=== PATIENT | male | born 1930 | race Caucasian/White ===

== ENCOUNTER 2018-06-22 19:05 | Inpatient (IN) ==
--- NOTE | 2018-06-22 19:49 | XR ---
EXAM DATE: 06/22/2018 7:46 PM EST AGE/SEX: 87 years / Male INDICATIONS: Shortness of breath. CLINICAL DATA: This is the patient's initial encounter. Patient reports that signs and symptoms have been present for 1 day and indicates a pain score of 0/10. MEDICAL/SURGICAL HISTORY: Hypertension. Congestive heart failure. Hypercholesterolemia. None. COMPARISON: [facility], CHEST SINGLE AP, 10/31/2015. . FINDINGS: No significant new focal pleural or parenchymal opacities. The cardiomediastinal contours are stable . Osseous structures are intact. CONCLUSION: 1. No acute cardiopulmonary disease. Electronically signed by: Catracho Piedra MD Board Certified Radiologist 06/22/2018 7:48 PM ES T
--- NOTE | 2018-06-22 19:51 | ED ---
HPI General Chief Complaint: Syncope Stated Complaint: syncope Time Seen by Provider: 06/22/18 19:26 Source: family Mode of arrival: EMS Limitations: other (Patient is almost completely nonverbal. He will occasionally answer simple yes/no questions.) History of Present Illness MD complaint: Reports loss of consciousness Onset (ago): minute(s) Duration of episode: 2 -: minutes(s) Description of event: Reports stopped breathing and other (Patient was just staring straight ahead. He did not seem to stop breathing. He was sitting on the toilet at the time. The family pressed on his chest. He started breathing again. He then vomited.) Prodromal symptoms: Reports none Witnessed: yes - by bystander Context: Reports other (He was sitting on the toilet. He is incontinent and wears a diaper. His daughter was in the process of changing his diaper and shirt when the episode occurred.) Injuries sustained associated with event: Reports none Current symptoms: Reports back to baseline History: Reports other (Dementia) Treatments prior to arrival: Reports none Related Data Home Medications Medication Instructions Recorded Confirmed alprazolam 0.5 mg PO DAILY 06/22/18 06/22/18 donepezil 10 mg PO DAILY 06/22/18 06/22/18 finasteride 5 mg PO DAILY 06/22/18 06/22/18 memantine 5 mg PO DAILY 06/22/18 06/22/18 quetiapine 50 mg PO BID 06/22/18 06/22/18 Allergies Allergy/AdvReac Type Severity Reaction Status Date / Time haloperidol AdvReac Intermediate tremors, Verified 06/22/18 19:12 dysphagia Review of Systems ROS: all other systems reviewed are negative [facility] Medical History Medical History CVA (cerebral vascular accident) (Acute) Dementia (Acute) History of anxiety (Acute) History of dysphagia (Acute) Social History Social History Substance History: No History of Abuse Second Hand Smoke Exposure: No Smoking Status: Former smoker Tobacco Type: Cigarettes How Often Do You Have a Drink Containing Alcohol: Never Recent Travel in [facility] within the Last 8 Weeks: No Recent Out of Country Travel within the Last 8 Weeks: No Immunization History Tetanus Immunization: Unable to Assess Exam Const General: cooperative, healthy appearing, comfortable, no acute distress and well developed Orientation: alert and awake [facility] Head: normal to inspection, normocephalic and atraumatic Mouth: moist mucous membranes Eyes Alignment and Position: alignment normal and position abnormal Conjunctivae: conjunctivae normal Sclera: sclerae normal EOM: EOM intact bilaterally Neck Neck: normal visual inspection and full ROM Chest Chest: normal inspection of the chest Resp Effort & Inspection: normal respiratory effort Auscultation: wheezes Cardio Rate: regular rate Rhythm: regular rhythm GI Inspection: normal to inspection Palpation: soft Back/Spine/Pelvis Cervical Spine: cervical ROM normal Thoracic/Lumbar Spine: thoraco-lumbar ROM normal Skin General: no rashes or lesions noted, turgor normal and dry skin Neuro General: alert, awake, moves all extremities and CN's II-XI intact bilaterally Extrem General: normal to inspection and full ROM Psych Other: Unable to evaluate Course Initial Documented Vital Signs Temperature 98.8 F 06/22/18 19:12 Pulse Rate 110 H 06/22/18 19:12 Respiratory Rate 20 06/22/18 19:12 Blood Pressure 156/94 H 06/22/18 19:12 Pulse Oximetry 91 L 06/22/18 19:12 Last Documented Vital Signs Temperature 98.8 F 06/22/18 19:30 Pulse Rate 95 H 06/22/18 21:07 Respiratory Rate 18 06/22/18 21:07 Blood Pressure 116/59 L 06/22/18 21:07 Pulse Oximetry 100 06/22/18 21:07 Critical Care Time Critical Care Time: Yes Total Critical Care Time: 40 Attestation: Time to perform other separately billable procedures was not included in the critical care time. My time did not include minutes spent treating any other patients simultaneously or on activities that did not directly contribute to the patient's treatment. The services I provided to this patient were to treat and/or prevent clinically significant deterioration due to syncope, hypoxia I provided critical care services requiring my management, as noted below: Chart data review, documentation time, medication orders and management, vital sign assessments/reviewing monitor data, ordering and reviewing lab tests, ordering and interpreting/reviewing x-rays and diagnostic studies, care of the patient and discussion of the patient with the admitting physicians Medical Decision Making MDM Narrative Medical decision making narrative: This is an elderly patient with dementia who is primary language is Sudanese who was brought to us by [facility]AC following a syncopal event at home. He is cared for at home by his family. His daughter states that she had walked into the bathroom for a routine diaper clean-up when he suddenly stared straight ahead and became unresponsive. She went to call 911 while her watch the patient. The states that the patient seemed to stop breathing. The family did some chest compression while the patient was sitting on the toilet. They estimate that the total episode lasted approximately 2 minutes. The patient spontaneously started breathing again and then vomited. At about that time, [facility] arrived at the house and brought the patient to us. He is now back to his baseline. His lungs have some wheezing. They report no known history of asthma or COPD. He has never had any wheezing before that they know anything about. His oxygen saturation is 91%. I really think that this patient had a seizure. We have not yet been able to obtain a urine sample. Family is concerned that catheterization will cause extreme agitation. I have asked the nursing staff to place a condom catheter. The patient will be admitted to the hospital for further evaluation of syncope, rule out seizure as well as for observation of his respiratory status. Medical Screen Exam Complete: Yes Emergency Medical Condition: Yes Differential Diagnosis Differential Diagnosis: My differential diagnosis of syncope includes but is not limited to cardiac arrhythmia, hypovolemia, anemia, neurological catastrophe , vasovagal response Differential diagnosis of dyspnea includes but is not limited to congestive heart failure, pneumonia, wheezing, pneumothorax, pulmonary embolism Medical Records Medical records reviewed: Yes I reviewed the patient's medical records. This patient is seen here infrequently. Medical history includes hypertension and dementia. Lab Data Lab results reviewed: Yes I reviewed the patient's lab results. Result diagrams: 06/22/18 20:08 06/22/18 20:08 Lab Results 06/22/18 06/22/18 Range/Units 20:08 20:08 CBC w Diff Auto diff final WBC 13.3 H (4.0-11.0) th/mm3 RBC 4.57 (4.50-5.90) mil/mm3 Hgb 14.3 (13.0-17.0) gm/dL Hct 42.4 (39.0-51.0) % MCV 92.7 (80.0-100.0) fL MCH 31.2 (27.0-34.0) pg MCHC 33.6 (32.0-36.0) % RDW 12.9 (11.6-17.2) % Plt Count 190 (150-450) th/mm3 MPV 7.4 (7.0-11.0) fL Neut % (Auto) 91.7 H (16.0-70.0) % Lymph % (Auto) 3.2 L (9.0-44.0) % Rice % (Auto) 0.8 (0.0-8.0) % Eos % (Auto) 0.0 (0.0-4.0) % Baso % (Auto) 4.3 H (0.0-2.0) % Neut # (Auto) 12.2 H (1.8-7.7) th/mm3 Lymph # (Auto) 0.4 L (1.0-4.8) th/mm3 Rice # (Auto) 0.1 (0.0-0.9) th/mm3 Eos # (Auto) 0.0 (0.0-0.4) th/mm3 Baso # (Auto) 0.6 H (0.0-0.2) th/mm3 WBC Differential . Differential Comment . Sodium 139 (136-145) meq/L Potassium 3.6 (3.5-5.1) meq/L Chloride 102 (98-107) meq/L Carbon Dioxide 28.1 (21.0-32.0) meq/L Anion Gap 9 (5-15) meq/L BUN 10 (7-18) mg/dL Creatinine 1.10 (0.60-1.30) mg/dL Estimated GFR 63 L (>89) mL/min Random Glucose 126 H (74-106) mg/dL Calcium 8.4 L (8.5-10.1) mg/dL Total Bilirubin 0.7 (0.2-1.0) mg/dL AST 29 (15-37) U/L ALT 25 (12-78) U/L Alkaline Phosphatase 107 (45-117) U/L Troponin I Less than 0.02 L (0.02-0.05) ng/mL Total Protein 7.4 (6.4-8.2) g/dL Albumin 3.4 (3.4-5.0) g/dL Imaging Data Attestation: I personally reviewed and interpreted this imaging study as follows : Radiologist's impression: Chest X-Ray 06/22/18 19:28 CONCLUSION: 1. No acute cardiopulmonary disease. Head CT 06/22/18 19:42 CONCLUSION: 1. Diffuse cerebral atrophy. 2. Moderate to severe periventricular and subcortical white matter small vessel ischemic changes bilaterally. 3. No acute infarct, acute hemorrhage, midline shift or extra-axial fluid collections. . ECG Data EKG Prior to Arrival: No Attestation: I personally reviewed and interpreted this ECG as follows: (EKG shows a sinus rhythm with a rate of 109. Lots of artifact. No acute ischemic changes.) Discharge Plan Discharge Disposition Patient Disposition: ED Admit(ED Internal Use Only) Discharge Order Discharge Orders: ED Use Only Admit Order (Routine); Ordered 06/22/18 Ordered By: Annette Whitaker Discharge Details Diagnosis: Syncope, Hypoxia, Wheezing Physicians Team ED Provider: Annette Whitaker Primary Care Provider: Morenita Dey Rxs /Orders / Referrals /Forms Prescriptions: No Action finasteride 5 mg Tablet 5 mg PO DAILY RF: 0 memantine 5 mg Tablet 5 mg PO DAILY RF: 0 quetiapine 50 mg Tablet 50 mg PO BID RF: 0 donepezil 10 mg Tablet 10 mg PO DAILY RF: 0 alprazolam 0.5 mg Tablet 0.5 mg PO DAILY RF: 0 Status ED Status: Pending Admission
[2018-06-22 20:14] LABS: Baso # (Auto) 0.6 th/mm3 (0.0-0.2); Baso % (Auto) 4.3 % (0.0-2.0); Hematocrit 42.4 % (39.0-51.0); Hemoglobin 14.3 gm/dL (13.0-17.0); Lymph # (Auto) 0.4 th/mm3 (1.0-4.8); Lymph % (Auto) 3.2 % (9.0-44.0); Mean Corpuscular HGB Conc 33.6 % (32.0-36.0); Mean Corpuscular Hemoglobin 31.2 pg (27.0-34.0); Mean Corpuscular Volume 92.7 fL (80.0-100.0); Mean Platelet Volume 7.4 fL (7.0-11.0); Mono # (Auto) 0.1 th/mm3 (0.0-0.9); Mono % (Auto) 0.8 % (0.0-8.0); Neut # (Auto) 12.2 th/mm3 (1.8-7.7); Neut % (Auto) 91.7 % (16.0-70.0); Platelet Count 190 th/mm3 (150-450); Red Blood Count 4.57 mil/mm3 (4.50-5.90); Red Cell Distribution Width 12.9 % (11.6-17.2); White Blood Count 13.3 th/mm3 (4.0-11.0)
[2018-06-22 20:20] LABS: Chloride 102 meq/L (98-107); Potassium 3.6 meq/L (3.5-5.1); Sodium 139 meq/L (136-145)
[2018-06-22 20:23] LABS: Calcium 8.4 mg/dL (8.5-10.1)
[2018-06-22 20:24] LABS: Albumin 3.4 g/dL (3.4-5.0); Anion Gap 9 meq/L (5-15); Blood Urea Nitrogen 10 mg/dL (7-18); Carbon Dioxide 28.1 meq/L (21.0-32.0); Glucose,Random 126 mg/dL (74-106)
[2018-06-22 20:27] LABS: Alanine Aminotransferase 25 U/L (12-78); Aspartate Aminotransferase 29 U/L (15-37); Glomerular Filtration Rate 63 mL/min (>89)
[2018-06-22 20:29] LABS: Total Protein 7.4 g/dL (6.4-8.2)
[2018-06-22 20:30] LABS: Alkaline Phosphatase 107 U/L (45-117)
--- NOTE | 2018-06-22 21:02 | CT ---
EXAM DATE: 06/22/2018 8:58 PM EST AGE/SEX: 87 years / Male INDICATIONS: Dizziness. Altered mental status. CLINICAL DATA: This is the patient's initial encounter. Patient reports that signs and symptoms have been present for 1 day and indicates a pain score of 0/10. MEDICAL/SURGICAL HISTORY: . Cerebral vascular accident. Dementia. Anxiety. Dysphagia . RADIATION DOSE: 50.06 CTDI (mGy) COMPARISON: [facility], CT BRAIN W/O CONTRAST, 10/31/2015. [facility], CT BRAIN W/O CONTRAST, 12/26/2014. . TECHNIQUE: CT of the head without contrast. Using automated exposure control and adjustment of the mA and/or kV according to patient size, radiation dose was kept as low as reasonably achievable to ob tain optimal diagnostic quality images. DICOM format image data is available electronically for revi ew and comparison. FINDINGS: Cerebrum: Diffuse cerebral atrophy is noted. Moderate to severe periventricular and subcortical whit e matter small vessel ischemic changes are noted bilaterally. No acute infarct, acute hemorrhage, mid line shift or extra-axial fluid collections are noted. Posterior Fossa: The cerebellum and brainstem are intact. The 4th ventricle is midline. The cerebe llopontine angle is unremarkable. Extracranial: The visualized portion of the orbits is intact. Skull: The calvaria is intact. No evidence of skull fracture. CONCLUSION: 1. Diffuse cerebral atrophy. 2. Moderate to severe periventricular and subcortical white matter small vessel ischemic changes elias aterally. 3. No acute infarct, acute hemorrhage, midline shift or extra-axial fluid collections. . Electronically signed by: Stu Norton MD Board Certified Radiologist 06/22/2018 9:01 PM EST
[2018-06-22] MEDS ORDERED: Acetaminophen 325 MG Tablet PO PRN (21:32)
[2018-06-22] MEDS: Sod Chloride 0.9% Inj 1,000 ML IV.CONT SCH (23:10)
--- NOTE | 2018-06-23 08:40 | US ---
EXAM DATE: 06/23/2018 8:32 AM EST AGE/SEX: 87 years / Male INDICATIONS: Altered mental status. CLINICAL DATA: This is the patient's initial encounter. Patient reports that signs and symptoms have been present for 1 day and indicates a pain score of 0/10. MEDICAL/SURGICAL HISTORY: Dementia. Congestive heart failure. Hypercholesterolemia. Hyperten amaury. CVA. None. COMPARISON: No prior exams available for comparison. VELOCITY PARAMETERS: ICA/CCA Ratio: Right 1.2 , Left 0.9 ICA: Right 95 cm/sec, Left 83 cm/sec CCA: Right 92 cm/sec, Left 95 cm/sec ECA: Right 162 cm/sec, Left 112 cm/sec Vertebral: Right 34 cm/sec antegrade, Left 31 cm/sec antegrade FINDINGS: Right Carotid: Mild arteriosclerotic plaque is visualized.The waveforms are within normal limits. Left Carotid: Mild arteriosclerotic plaque is visualized. The waveforms are within normal limits. Other: None. CONCLUSION: 1. Right Internal Carotid Artery: No significant stenosis or atherosclerotic plaque is visualized. 2. Left Internal Carotid Artery: No significant stenosis or atherosclerotic plaque is visualized. Electronically signed by: Stu Norton MD Board Certified Radiologist 06/23/2018 8:39 AM EST
[2018-06-23 08:42] LABS: Eos % (Auto) 0.1 % (0.0-4.0); Hematocrit 35.4 % (39.0-51.0); Hemoglobin 12.1 gm/dL (13.0-17.0); Lymph # (Auto) 0.9 th/mm3 (1.0-4.8); Lymph % (Auto) 5.4 % (9.0-44.0); Mean Corpuscular HGB Conc 34.1 % (32.0-36.0); Mean Corpuscular Hemoglobin 32.2 pg (27.0-34.0); Mean Corpuscular Volume 94.5 fL (80.0-100.0); Mean Platelet Volume 8.4 fL (7.0-11.0); Mono # (Auto) 0.7 th/mm3 (0.0-0.9); Mono % (Auto) 3.8 % (0.0-8.0); Neut % (Auto) 90.7 % (16.0-70.0); Platelet Count 191 th/mm3 (150-450); Red Blood Count 3.75 mil/mm3 (4.50-5.90); Red Cell Distribution Width 13.4 % (11.6-17.2); White Blood Count 17.6 th/mm3 (4.0-11.0)
[2018-06-23 08:54] LABS: Potassium 4.1 meq/L (3.5-5.1)
[2018-06-23 08:58] LABS: Calcium 7.8 mg/dL (8.5-10.1)
--- NOTE | 2018-06-23 09:17 | P.HPIM ---
History of Present Illness Primary Care Physician: Morenita Dey MD Chief Complaint: syncope History of Present Illness: Patient is 87-year-old male with past medical history of prior CVA, dementia, on presented to emergency room with syncope. Patient is almost completely normal nonverbal at baseline and answers questions with yes or no. Patient appears sleepy however arousable. According to the family is taking care of the patient he was sitting on the toilet when he is tired staring straightahead and was not responsive to the daughter. He also stops breathing briefly and seemed to stare. Patient vomited once after this episode. The patient is incontinent and wears a diaper. His daughter was in the process of changing his diaper pressure when episode occurred. No jerking movements of limbs noted. Was not biting his tongue. No history of seizures in the past. He follows with Dr. Galaviz for dementia as outpatient. Review of Systems history reviewed mainly form family/ records, EMS Review of Systems: all other systems reviewed are negative ROS Unobtainable: unobtainable due to mental condition [facility] Medical History Medical History CHF (congestive heart failure) (Acute) CVA (cerebral vascular accident) (Acute) Dementia (Acute) High cholesterol (Acute) History of anxiety (Acute) History of dysphagia (Acute) Hypertension (Acute) Surgical History Surgical History History of cardiac cath (Acute) Social History Social History Substance History: No History of Abuse Second Hand Smoke Exposure: No Smoking Status: Never smoker Tobacco Type: Cigarettes How Often Do You Have a Drink Containing Alcohol: Never Recent Travel in [facility] within the Last 8 Weeks: No Recent Out of Country Travel within the Last 8 Weeks: No Immunization History Tetanus Immunization: Unable to Assess Medications and Allergies Allergies Allergy/AdvReac Type Severity Reaction Status Date / Time haloperidol AdvReac Intermediate tremors, Verified 06/22/18 19:12 dysphagia Home Medications Medication Instructions Recorded Confirmed Type alprazolam 0.5 mg PO DAILY 06/22/18 06/22/18 History donepezil 10 mg PO DAILY 06/22/18 06/22/18 History finasteride 5 mg PO DAILY 06/22/18 06/22/18 History memantine 5 mg PO DAILY 06/22/18 06/22/18 History quetiapine 50 mg PO BID 06/22/18 06/22/18 History Active Medications: Active Medications Acetaminophen (Tylenol) 650 mg PO Q4H PRN PRN Reason: PAIN SCALE 1 TO 10 Albuterol (Duoneb Neb (Prn)) 1 ampul NEB Q4HR NEB PRN PRN Reason: sob/wheezing Sodium Chloride (Ns Inj) 1,000 mls @ 75 mls/hr IV.CONT .[id number] KAREN Last Admin: 06/22/18 23:10 Dose: 75 mls/hr Physical Exam Vital signs: Last Vital Signs Temp 97.6 F 06/23/18 08:00 Pulse 58 L 06/23/18 08:00 Resp 18 06/23/18 08:00 BP 92/55 L 06/23/18 08:00 Pulse Ox 96 06/23/18 08:00 Intake & Output 06/21/18 06/22/18 06/23/18 06/24/18 06:59 06:59 06:59 06:59 Intake Total 0 / 0 Balance 0 / 0 Weight 58.7 kg Narrative: GENERAL: Elderly male, in bed does not appear in acute distress, sleepy at this time however arousable follows some simple commands. SKIN: Warm and dry. HEAD: Atraumatic. Normocephalic. EYES: Pupils equal and round. No scleral icterus. No injection or drainage. ENT: No nasal bleeding or discharge. Mucous membranes pink and moist. NECK: Trachea midline. No JVD. CARDIOVASCULAR: Regular rate and rhythm. RESPIRATORY: No accessory muscle use. Decreased breath sounds. GASTROINTESTINAL: Abdomen soft, non-tender, nondistended. Hepatic and splenic margins not palpable. MUSCULOSKELETAL: Extremities without clubbing, cyanosis, or edema. No obvious deformities. NEUROLOGICAL: Awake and alert however falling asleep easily. Follows some simple commands. Moves arms and legs spontaneously. Results Labs CBC & Chem 7: 06/23/18 07:23 06/23/18 07:23 Imaging Impressions Chest X-Ray 06/22/18 19:28 CONCLUSION: 1. No acute cardiopulmonary disease. Head CT 06/22/18 19:42 CONCLUSION: 1. Diffuse cerebral atrophy. 2. Moderate to severe periventricular and subcortical white matter small vessel ischemic changes bilaterally. 3. No acute infarct, acute hemorrhage, midline shift or extra-axial fluid collections. . Carotid Doppler Study 06/23/18 00:00 CONCLUSION: 1. Right Internal Carotid Artery: No significant stenosis or atherosclerotic plaque is visualized. 2. Left Internal Carotid Artery: No significant stenosis or atherosclerotic plaque is visualized. Caprini VTE Risk Assessment Caprini VTE Risk Assessment: Moderate/High Risk (score >= 2) Caprini Risk Assessment Model: Point Value = 1 Point Value = 2 Point Value = 3 Point Value = 5 Age 41-60 Minor surgery BMI > 25 kg/m2 Swollen legs Varicose veins or History of unexplained or recurrent spontaneous Oral contraceptives or hormone replacement Sepsis (< 1 month) Serious lung disease, including pneumonia (< 1 month) Abnormal pulmonary function Acute myocardial infarction Congestive heart failure (< 1 month) History of inflammatory bowel disease Medical patient at bed rest Age 61-74 Arthroscopic surgery Major open surgery (> 45 min) Laparoscopic surgery (> 45 min) Malignancy Confined to bed (> 72 hours) Immobilizing plaster cast Central venous access Age >= 75 History of VTE Family history of VTE Factor V Leiden Prothrombin [id number] Lupus anticoagulant Anticardiolipin antibodies Elevated serum homocysteine Heparin-induced thrombocytopenia Other congenital or acquired thrombophilia Stroke (< 1 month) Elective arthroplasty Hip, pelvis, or leg fracture Acute spinal cord injury (< 1 month) Prophylaxis Regimen: Total Risk Factor Score Risk Level Prophylaxis Regimen 0-1 Low Early ambulation 2 Moderate Order ONE of the following: *Sequential Compression Device (SCD) *Heparin 5000 units SQ BID 3-4 Higher Order ONE of the following medications: *Heparin 5000 units SQ TID *Enoxaparin/Lovenox 40 mg SQ daily (WT < 150 kg, CrCl > 30 mL/min) *Enoxaparin/Lovenox 30 mg SQ daily (WT < 150 kg, CrCl > 10-29 mL/min) *Enoxaparin/Lovenox 30 mg SQ BID (WT < 150 kg, CrCl > 30 mL/min) AND/OR *Sequential Compression Device (SCD) 5 or more Highest Order ONE of the following medications: *Heparin 5000 units SQ TID (Preferred with Epidurals) *Enoxaparin/Lovenox 40 mg SQ daily (WT < 150 kg, CrCl > 30 mL/min) *Enoxaparin/Lovenox 30 mg SQ daily (WT < 150 kg, CrCl > 10-29 mL/min) *Enoxaparin/Lovenox 30 mg SQ BID (WT < 150 kg, CrCl > 30 mL/min) AND *Sequential Compression Device (SCD) Assessment and Plan Plan 79-year-old male with past medical history of dementia, previous CVA presented with Syncope History of dementia Previous CVA CT scan reviewed no acute infarct or hemorrhage. Shows diffuse cerebral atrophy and small vessel disease bilaterally Carotid ultrasound reviewed and no significant stenosis Plan for 2D echo Consult patient neurology Dr. Galaviz Restart home medications as needed Poss aspiration PNA start zosyn IV CXR Reviewed no acute findings however imaging might lag. Patient with leukocytosis, tachycardia , poss aspiration PNA meets sepsis criteria IS mucinex Gentle IVF check also UA DVT ppx scd./teds. heparin sq Discussed Condition With: patient, daughter at bedside, nurse H&P: Quality VTE Deep Vein Thrombosis/Pulmonary Embolism Present on Admission: No
[2018-06-23 12:59] LABS: Bilirubin,Urine Negative (Negative); Clarity,Urine Clear (Clear); Color,Urine Yellow (Yellw/Straw); Glucose,Urine (UA) Negative (Negative); Leukocyte Esterase,Urine Trace (Negative); Nitrite,Urine Negative (Negative); PH,Urine 5.5 (5.0-8.5); Urobilinogen,Urine 0.2 mg/dL (Less than 2)
[2018-06-23 13:06] LABS: Amphetamine Screen,Urine Neg (Neg); Barbiturate Screen,Urine Neg (Neg)
[2018-06-23 13:07] LABS: Cannabinoid Screen,Urine Neg (Neg); Cocaine Screen,Urine Neg (Neg)
[2018-06-23] MEDS: Sod Chloride 0.9% Inj 1,000 ML IV.CONT SCH (13:10)
[2018-06-23] MEDS ORDERED: Finasteride 5 MG Tablet PO ONE (13:15)
[2018-06-23 13:18] LABS: Collection Time,Urine 1245 hours
[2018-06-23 13:19] LABS: WBC,Urine 0-5 /hpf (0-5)
[2018-06-23 13:20] LABS: Hyaline Casts,Urine 0-3 /lpf (0-3)
[2018-06-23 13:25] LABS: Opiate Screen,Urine Neg (Neg)
--- NOTE | 2018-06-23 14:29 | MB ---
cc: Felicitas Ahn MD DATE: 06/23/2018 REASON FOR CONSULTATION: Possible seizure, change in mental status. HISTORY OF PRESENT ILLNESS: This is an 87-year-old male with moderately severe dementia. Comes in because he was in his usual state of health yesterday after family a member fed him. They usually get him up and assist him to the bathroom. While on the toilet, he stiffened up, had a blank stare, clenching his teeth. Did not lose consciousness. Questionable issue that he stopped breathing or not, really difficult to tell, and then vomited his meal after the event. He is incontinent to start with. He does wear diapers. He does not speak much. He does eat on his own. Basically sits and watches TV most of the day. There was no jerking of his arms or legs and no tongue biting reported. He has a history of heart disease, dementia, possible stroke, anxiety, hypertension. PAST SURGICAL HISTORY: Cardiac catheterization. SOCIAL HISTORY: He lives with family. Does not smoke, does not drink. PHYSICAL EXAMINATION: VITAL SIGNS: Temperature is 97.3, pulse 52, respiratory rate 18, blood pressure 100/54, saturating 97% on room air. NECK: Supple. HEART: Regular. NEUROLOGIC: He is awake and alert. He does not follow commands, is nonverbal. His pupils are reactive. His face looks symmetrical. Motor narvaez, he withdraws all 4 extremities. Toes are downgoing. Does not follow for cerebellar. Gait is withheld. LABORATORY DATA: Reviewed. White count 17.6, hemoglobin 12.1, platelets 191,000. Chemistry: Glucose 124, calcium 7.8. Urine: Trace ketones and leukocyte esterase. Culture is not really indicated here. UDS positive for benzodiazepines. I am not sure if he is taking any at home or not. IMAGING: The CT of the head on admission shows a lot of white matter disease and diffuse atrophy, but nothing acute. Carotid ultrasound did not show any stenosis. IMPRESSION: Change in mental status, acute, possibly due to vasovagal response. Possible seizure in a demented patient with likely Alzheimer's versus other yet to be determined. I am going to go ahead and order an MRI of the brain just to make sure he did not have a stroke. He did have his echo, and EEG reports are pending. If his workup is negative, I would anticipate sending him home and having him follow up in the office with myself or my PA, as Dr. Hyde has now retired. I did discuss this with his family member. I would hold off on any antiepileptics at this point in time. He does have a white count elevation. I am not sure of the etiology of that, but watch him for any fever. I do not see any signs of any nuchal rigidity. I anticipate discharging him when stable, hopefully in the next 24 hours and have him follow up with us if his workup is unremarkable. MD ROSY Naylor/juliocesar , 02:03 PM , 02:11 PM
[2018-06-23] MEDS: Piperacil/Tazo 3.375 GM Premix 3.375 GM/50 ML PIGGYBACK IV.SIG SCH (14:57)
--- NOTE | 2018-06-23 16:19 | ECHRPT ---
Indication: Syncope CONCLUSIONS Normal left ventricular size. Mild concentric left ventricular hypertrophy. The left ventricular systolic function is low normal with an estimated ejection fraction in the rang e of 50- 55%. Normal atrial septal thickness. Trace mitral valve regurgitation. Aortic valve sclerosis is present. Trace aortic valve regurgitation. There is trace tricuspid valve regurgitation. The estimated pulmonary arterial pressure is 31 mmHg. BP: / HR: Rhythm: MEASUREMENTS (Male / Female) Normal Values Technical Quality:Technically difficult study 2D ECHO LV Diastolic Diameter PLAX 3.8 cm 4.2 - 5.9 / 3.9 - 5.3 cm LV Systolic Diameter PLAX 2.8 cm IVS Diastolic Thickness 1.2 cm 0.6 - 1.0 / 0.6 - 0.9 cm LVPW Diastolic Thickness 1.1 cm 0.6 - 1.0 / 0.6 - 0.9 cm LV Relative Wall Thickness 0.6 RV Internal Dim ED PLAX 3.5 cm LVOT Diameter 2.3 cm Aortic Root Diameter 3.2 cm LA Systolic Diameter LX 2.6 cm 3.0 - 4.0 / 2.7 - 3.8 cm DOPPLER AV Peak Velocity 89.6 cm/s AV Peak Gradient 3.2 mmHg AI Peak Velocity 320.0 cm/s AI Peak Gradient 41.0 mmHg AI Pressure Half Time 526.0 ms LVOT Peak Velocity 88.8 cm/s LVOT Peak Gradient 3.2 mmHg AV Area Cont Eq pk 4.1 cm Mitral E Point Velocity 60.2 cm/s Mitral A Point Velocity 89.3 cm/s Mitral E to A Ratio 0.7 LV E' Lateral Velocity 6.4 cm/s Mitral E to LV E' Lateral Ratio 9.4 LV E' Septal Velocity 4.5 cm/s Mitral E to LV E' Septal Ratio 13.4 TR Peak Velocity 227.0 cm/s TR Peak Gradient 20.6 mmHg Right Atrial Pressure 10.0 mmHg Pulmonary Artery Systolic Pressu 30.6 mmHg Right Ventricular Systolic Press 30.6 mmHg PV Peak Velocity 88.2 cm/s PV Peak Gradient 3.1 mmHg FINDINGS LEFT VENTRICLE Normal left ventricular size. Mild concentric left ventricular hypertrophy. The left ventricular systolic function is low normal with an estimated ejection fraction in the rang e of 50- 55%. RIGHT VENTRICLE Normal right ventricular size and systolic function. LEFT ATRIUM The left atrial size is normal. RIGHT ATRIUM The right atrial size is normal. ATRIAL SEPTUM Normal atrial septal thickness. AORTA The aortic root and proximal ascending aorta are normal in size on limited imaging. MITRAL VALVE Trace mitral valve regurgitation. AORTIC VALVE Trileaflet aortic valve. Aortic valve sclerosis is present. Trace aortic valve regurgitation. TRICUSPID VALVE There is trace tricuspid valve regurgitation. The estimated pulmonary arterial pressure is 31 mmHg. PULMONARY VALVE The pulmonary valve is not well visualized. VESSELS The inferior vena cava was not well visualized. PERICARDIUM No pericardial effusion. Sarah Dan MD, FACC (Electronically Signed) Final Date:23 June 2018 16:17
--- NOTE | 2018-06-23 17:06 | MG ---
cc: Rich Johnson MD, PhD TEST NUMBER: [id number] TECHNIQUE: A 17-channel EEG. DESCRIPTION: The background rhythm reveals a symmetrical alpha activity frequency 8-9 Hz. Amplitude is 20-30 microvolts. There are no lateralizing features identified. There are no epileptiform features seen. During drowsiness, there is slowing in the theta range. The patient does fall asleep and evidence of sleep spindles are seen. Photic is normal. INTERPRETATION: Normal electroencephalogram. Rich Johnson MD, PhD MIKE/ct , 04:33 PM , 04:37 PM
--- NOTE | 2018-06-23 17:40 | MR ---
EXAM DATE: 06/23/2018 5:31 PM EST AGE/SEX: 87 years / Male INDICATIONS: Seizures. CLINICAL DATA: This is the patient's subsequent encounter. Patient reports that signs and symptoms h ave been present for 2 days and indicates a pain score of 0/10. MEDICAL/SURGICAL HISTORY: Hypertension. None. COMPARISON: [facility], CT HEAD W/O CONTRAST, 06/22/2018. . TECHNIQUE: Multiplanar, multisequence examination of the brain was performed without contrast. FINDINGS: Cerebrum: The ventricles are mildly prominent for age. Diffuse bilateral cortical atrophy and chroni c white matter changes. No evidence of midline shift, mass lesion, hemorrhage.. No extraaxial fluid collections are seen. The pituitary gland and suprasellar cistern are normal in configuration. Tiny area of restricted diffusion in the posterior right parietal lobe suggestive of a tiny acute infarct . White Matter: Moderate diffuse chronic white matter changes characteristic of ischemic demyelinizati on. Posterior Fossa: The cerebellum and brainstem are intact. The 4th ventricle is midline. The cerebel lopontine angle is unremarkable. The cerebellar tonsils are normal in position. Diffusion Imaging: Tiny focus of restricted diffusion measuring about 3 mm in the posterior right pa rietal lobe characteristic of a tiny acute infarct. Extracranial: The visualized portions of the orbits and paranasal sinuses are unremarkable. CONCLUSION: 1. Tiny focal acute infarct in the posterior right parietal lobe. 2. Diffuse bilateral cortical atrophy and chronic white matter changes. There is some prominence of the ventricles bilaterally most likely related to the diffuse bilateral cortical atrophy. However, a second possibility would be normal pressure hydrocephalus. This would have to be correlated with candice ent's physical and clinical exam. Electronically signed by: Lavon Claros MD Board Certified Radiologist 06/23/2018 5:38 PM EST
--- NOTE | 2018-06-23 18:39 | ECG ---
Date Performed: 06/22/2018 Time Performed: 19:35:33 PTAGE: 87 years EKG: SINUS TACHYCARDIA WITH FIRST DEGREE AV BLOCK LEFT ANTERIOR FASCICULAR BLOCK LEFT VENTRICULA R HYPERTROPHY AND ST-T CHANGE ABNORMAL ECG PREVIOUS TRACING : 10/31/2015 11.54 Compared to previous tracing, ST-T changes present DOCTOR: Sarah Dan Interpretating Date/Time 06/23/2018 18:38:29
[2018-06-24] MEDS: guaiFENesin 600 MG ER Tablet PO SCH ×2 (00:02→15:51)
[2018-06-24] MEDS: Piperacil/Tazo 3.375 GM Premix 3.375 GM/50 ML PIGGYBACK IV.SIG SCH ×2 (00:02→06:59)
[2018-06-24] MEDS: Sod Chloride 0.9% Inj 1,000 ML IV.CONT SCH (02:20)
[2018-06-24] MEDS ORDERED: Finasteride 5 MG Tablet PO SCH (09:00)
[2018-06-24 09:23] LABS: Baso # (Auto) 0.1 th/mm3 (0.0-0.2); Baso % (Auto) 0.7 % (0.0-2.0); Eos # (Auto) 0.1 th/mm3 (0.0-0.4); Eos % (Auto) 1.2 % (0.0-4.0); Hematocrit 33.1 % (39.0-51.0); Lymph % (Auto) 14.2 % (9.0-44.0); Mean Corpuscular HGB Conc 33.3 % (32.0-36.0); Mean Corpuscular Hemoglobin 30.9 pg (27.0-34.0); Mean Corpuscular Volume 92.9 fL (80.0-100.0); Mean Platelet Volume 7.7 fL (7.0-11.0); Mono # (Auto) 0.4 th/mm3 (0.0-0.9); Mono % (Auto) 5.5 % (0.0-8.0); Neut # (Auto) 5.7 th/mm3 (1.8-7.7); Neut % (Auto) 78.4 % (16.0-70.0); Platelet Count 178 th/mm3 (150-450); Red Blood Count 3.56 mil/mm3 (4.50-5.90); Red Cell Distribution Width 13.1 % (11.6-17.2); White Blood Count 7.3 th/mm3 (4.0-11.0)
[2018-06-24 09:56] LABS: Potassium 3.8 meq/L (3.5-5.1)
[2018-06-24 10:04] LABS: Calcium 7.6 mg/dL (8.5-10.1)
[2018-06-24 10:05] LABS: Carbon Dioxide 27.1 meq/L (21.0-32.0)
--- NOTE | 2018-06-24 10:25 | P.PNIM ---
Subjective Interval history: The patient is in bed he was getting earlier today with physical therapy. Discussed with Armin from physical therapy recommends home with home health. Also family at bedside patient has 24-hour care at home. Discussed with Dr. Ahn who cleared patient for discharge. Patient is more awake and alert he is following commands. No cough no fever or chills. No nausea or vomiting. He is back at his baseline. Wants to go home. Family is very supportive. Physical Exam Vital signs: Last Vital Signs Temp 97.6 F 06/24/18 09:08 Pulse 52 L 06/24/18 09:08 Resp 15 06/24/18 09:08 BP 128/62 06/24/18 09:08 Pulse Ox 94 L 06/24/18 09:08 Intake & Output 06/22/18 06/23/18 06/24/18 06/25/18 06:59 06:59 06:59 06:59 Intake Total 0 / 0 2180 / 2180 50 / 50 Output Total 200 / 200 Balance 0 / 0 1979 / 1979 50 / 50 Weight 58.7 kg Narrative: GENERAL: Elderly male, in bed does not appear in acute distress, pleasantly confused, back at his baseline. CARDIOVASCULAR: Regular rate and rhythm. RESPIRATORY: No accessory muscle use. No wheezing. Normal breath sounds. GASTROINTESTINAL: Abdomen soft, non-tender, nondistended. Hepatic and splenic margins not palpable. MUSCULOSKELETAL: Extremities without clubbing, cyanosis, or edema. No obvious deformities. NEUROLOGICAL: Awake and alert back at his baseline. Follows commands. Moves arms and legs spontaneously. Was able to walk with physical therapy Urinary Catheter Management Straight: Cath placed during this visit: yes, but has since been removed by the nurse Insertion date: 06/23/18 Insertion time: 12:30 Removal date: 06/23/18 Removal time: 12:45 Results Labs CBC & Chem 7: 06/24/18 08:40 06/24/18 08:40 Imaging Imaging: Impressions Head MRI 06/23/18 00:00 CONCLUSION: 1. Tiny focal acute infarct in the posterior right parietal lobe. 2. Diffuse bilateral cortical atrophy and chronic white matter changes. There is some prominence of the ventricles bilaterally most likely related to the diffuse bilateral cortical atrophy. However, a second possibility would be normal pressure hydrocephalus. This would have to be correlated with patient's physical and clinical exam. Assessment and Plan Plan 79-year-old male with past medical history of dementia, previous CVA presented with Syncope History of dementia Previous CVA. Right parietal lobe tiny stroke seen on MRI CT scan reviewed no acute infarct or hemorrhage. Shows diffuse cerebral atrophy and small vessel disease bilaterally Carotid ultrasound reviewed and no significant stenosis 2D echo reviewed normal ejection fraction Consult patient neurology. Seen by Dr. Ahn neurology. MRI findings discussed with Dr. Ahn recommends follow-up as outpatient. Restart home medications as needed Poss aspiration PNA started on zosyn IV. Change to p.o. antibiotics at discharge CXR Reviewed no acute findings however imaging might lag. Patient with leukocytosis, tachycardia , poss aspiration PNA meets sepsis criteria IS mucinex DC IVF UA reviewed DVT ppx scd./teds. heparin sq Discharge plan patient is cleared for discharge by neurology to follow-up as outpatient . Patient is discharged home with home health to follow-up as outpatient with PCP and consultants Medications per medication reconciliation's Diet regular as tolerated Activity ad wilfrido. as tolerated fall precautions Discussed with the patient, family at bedside very supportive, Armin from physical therapy, Dr. Ahn neurology Dr. Discharge time more than 35 minutes Progress Note: Quality VTE Deep Vein Thrombosis/Pulmonary Embolism Present on Admission: No
--- NOTE | 2018-06-24 13:32 | P.DCO ---
Physical Therapy Order: Evaluate and treat Home Health Nursing Order: Medical education, Signs/symptoms of disease process, Medication education-adverse effect and Nursing assessment with vital signs Case Management Consult Case Management Consult-Home Health: Yes I have seen patient Rich Clemons on 06/24/18. My clinical findings support the need for the requested home health care services because: Limited mobility due to disease progression, Deconditioned with increased weakness, Limited ability to care for self and Impaired cognition/judgement I certify that my clinical findings support that this patient is homebound because: Post-op weakness, Impaired cognitive ability/safety and Unsteady gait/balance
[2018-06-24 14:35] VITALS: BP 170/75; PULSE 65; RESP 14; TEMP 96.7; O2SAT 96
== END 2018-06-24 16:30 | disposition home or self-care (01) | DRG 312 ==
LOC: PHED 19:05 → PHEDA 19:05 → PH3 22:39
PROVIDERS: ADMIT Hospitalist; ATTEND Hospitalist
CPT/HCPCS: 51798; 70450; 70551; 71010; 71045; 80048; 80053; 80307; 81001; 83520; 83605; 83880; 84484; 85025; 87040; 93005; 93306; 93880; 94664; 95819; 97162; 97166; 99291; G0378; J2543; J7030